=== PATIENT | male | born 1935 | race Caucasian/White ===

== ENCOUNTER 2017-03-04 06:51 | Emergency (ER) | payer OTHER, MEDICARE ==
[2017-03-04 06:58] VITALS: TEMP 98.4; O2SAT 97
[2017-03-04 07:18] LABS: COLOR YELLOW; LEUKOCYTE ESTERASE,URINE NEGATIVE (NEGATIVE); NITRITE,URINE NEGATIVE (NEGATIVE)
[2017-03-04] MEDS ORDERED: IBUPROFEN 600 MG TAB PO ONE (07:28)
[2017-03-04] MEDS ORDERED: IBUPROFEN 200 MG TAB PO ONE (07:37)
--- NOTE | 2017-03-04 07:38 | EDPHY ---
H & P Time Seen by Provider: 03/04/17 07:02 HPI/ROS: Mr. Rodrigez injured his back bending over 5 days prior to arrival while caring for his of 60 years who is bed- bound with severe dementia at home. He explains that when he bent over he developed initially moderate low back pain "that he has had 100 times". However, he started developing pain to the right buttock radiating down his right posterior leg associated with right lower leg paresthesias 3 days prior to arrival that is increased in intensity and now is making sleep difficult. He has had no relief from will 1 ibuprofen 2 hours prior to arrival. He has worsening with certain movements, particularly when he 1st try standing up from a seated position no times the pain is severe intensity-8/10 or so. He feels that he has slight weakness to the right leg at times as well and notes no other associated symptoms. ROS: No fevers chills or other constitutional symptoms HEENT: No URI symptoms. Pulmonary: No shortness of breath cough or other complaints Cardiovascular: No discoloration to the affected lower extremity. He reports no chest pain currently. He does report a long history of sharp chest wall pain that happens at rest to the left anterior ribs without any other associated symptoms and resolves without intervention. He did have a cardiac treadmill stress test 3 years ago at [facility] that was normal. No recent change in these mild chest wall pains. Again currently chest pain-free GI: He denies any abdominal pain. Normal bowel movements. Normal appetite. No nausea vomiting. : No hematuria testicle pain or other urinary symptoms Neuro: He denies any numbness. Integumentary: No skin rash 10 point ROS is otherwise negative. Past Medical/Surgical History: Hyperlipidemia Normal cardiac stress test 3 years ago at [facility]. 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 General: No acute distress Eyes: Pupils equal and react to light. Extraocular motions are intact. Lungs: Clear to auscultation bilaterally. No respiratory distress. Cardiac: Regular rate and rhythm with no murmur gallop or rub. Abdomen: Soft, nontender, no pulsatile masses. Back: No midline tenderness. Patient does have right paraspinous lumbar tenderness the partially reproduces symptoms as well as sciatic notch tenderness. Straight leg raise is negative bilaterally. He has limited range of motion in forward flexion due to pain. Skin: No rash or pallor. No skin rash Neuro: Alert and oriented x3 with no sensorimotor deficits. Initial differential diagnosis: Sciatica, discogenic back pain with sciatica, degenerative disc disease, pathologic fracture, ureteral stone, UTI Constitutional: Initial Vital Signs Temperature (C) 36.9 C 03/04/17 06:56 Heart Rate 71 03/04/17 06:56 Respiratory Rate 16 03/04/17 06:56 Blood Pressure 173/71 H 03/04/17 06:56 O2 Sat (%) 97 03/04/17 06:56 O2 Delivery Mode Room Air Allergies/Adverse Reactions: No Known Allergies Allergy (Unverified 03/04/17 06:55) Home Medications: Medication Instructions Recorded Atorvastatin Calcium [Lipitor 10 03/04/17 mg (*)] Fluticasone Propionate [Flovent 03/04/17 Hfa] Methocarbamol [Robaxin 750 mg (*)] 750 - 1,500 mg PO QID PRN #30 tab 03/04/17 traMADol [Ultram 50 mg (*)] 50 - 100 mg PO Q4 PRN #15 tab 03/04/17 MDM/Departure - MDM Diagnostics: Urinalysis is normal Imaging Results: Imaging Impressions Lumbar Spine X-Ray 03/04/17 07:29 Impression: 1. Multilevel degenerative change lumbar spine. 2. Possible left nephrolithiasis. Lumbar spine x-ray: Mild DJD. Otherwise negative by my interpretation Imaging: I viewed and interpreted images myself Medications Given: Discontinued Medications Ibuprofen (Motrin) 400 mg PO EDNOW ONE Stop: 03/04/17 07:29 Last Admin: 03/04/17 07:38 Dose: 400 mg ED Course/Re-evaluation: Ibuprofen 400 mg p.o. Discussion: Patient's findings are consistent with sciatica without evidence of sensory or motor deficits. No evidence of cauda equina. His urinalysis reveals no hematuria. I think he has active ureteral lithiasis. He does not have any pulsatile masses in his belly, belly tenderness and he maintains symmetric pulses lower extremities. He do not think that he has a AAA. His symptoms and physical findings are consistent with sciatic and I counseled him regarding stretches that may be helpful. Will start him on ibuprofen, methocarbamol and tramadol with follow up with primary care physician this week. - Depart Disposition: Home, Routine, Self-Care Clinical Impression: Sciatica Qualifiers: Laterality: right Qualified Code(s): M54.31 - Sciatica, right side Condition: Good Instructions: Sciatica (ED) Additional Instructions: Diagnosis: Sciatica Plan: Ibuprofen-400 mg per 6 hours while awake if needed Methocarbamol muscle relaxant in addition Tylenol in addition or tramadol for more severe pain that prevents sleep. No driving, or work on tramadol Follow up primary care physician for recheck in 3-7 days Return for any significant worsening despite the treatment plan. Prescriptions: Methocarbamol [Robaxin 750 mg (*)] 750 - 1,500 mg PO QID PRN #30 tab PRN Reason: Muscle Spasms traMADol [Ultram 50 mg (*)] 50 - 100 mg PO Q4 PRN #15 tab PRN Reason: breakthrough pain Referrals: NONE *PRIMARY CARE P,. [Primary Care Provider] - As per Instructions
[2017-03-04 08:26] VITALS: BP 125/62; PULSE 78; RESP 18
== END 2017-03-04 08:25 | disposition home or self-care (01) ==
LOC: CED 06:51
DX: M54.31 Sciatica, right side (principal)
CPT/HCPCS: 72100-PO; 81003-PO